=== PATIENT | male | born 1985 | race African-American/Black ===

== ENCOUNTER → 2022-08-03 09:35 | Outpatient (BNVA) | payer OTHER, SELFPAY | PROVIDERS: PCP Physician Assistant; Visit Provider Nurse Practitioner Family | DX: G43.909 Migraine, unspecified, not intractable, without status migrainosus (principal); R41.82 Altered mental status, unspecified; R25.8 Other abnormal involuntary movements | CPT/HCPCS: 99202 ==

== ENCOUNTER 2022-08-08 07:59 | Outpatient (REF) | payer OTHER, SELFPAY ==
--- NOTE | 2022-08-08 08:07 | EEG_ITS ---
FINDINGS: The waking background activity consists of well-defined posterior 10 Hz alpha frequency at ttr-od-piizeago voltage intermixed anteriorly with low voltage fast frequency. Photic stimulation and hyperventilation are without activation. No sleep stages are identified. No focal, lateralizing, or paroxysmal discharges seen. IMPRESSION: This waking EEG is within normal limits. MD LORRAINE Sykes/PEDRO / [id number]
== END 2022-08-08 08:00 | disposition home or self-care (01) ==
LOC: HO.NEURO 07:59
PROVIDERS: Visit Provider Nurse Practitioner Family
DX: R25.8 Other abnormal involuntary movements (principal); R41.82 Altered mental status, unspecified
CPT/HCPCS: 95816

== ENCOUNTER 2022-09-08 09:28 | Outpatient (REF) | payer OTHER, SELFPAY ==
--- NOTE | ~2022-09-08 | MR_ITS ---
MRI OF THE BRAIN WITHOUT IV CONTRAST INDICATION: Involuntary movements. COMPARISON: None available. TECHNIQUE: Multiplanar multisequence MR imaging of the brain was obtained without IV contrast. FINDINGS: There is no hydrocephalus, extra-axial surface collection, or herniation. The major flow voids at the skull base are preserved. There is no acute infarct on diffusion-weighted imaging. There is no intracranial hemorrhage on the gradient recalled echo acquisition. The midline structures are normal. The cerebellar tonsils are normally positioned. The cerebellum and brainstem are normal. The craniocervical junction is normal. Osseous marrow signal intensity is homogenous. The visualized soft tissues are unremarkable. 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 MR/MR head/brain wo con IMPRESSION: - Unremarkable noncontrast MRI of the brain. No seizure foci identified. 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
== END 2022-09-08 09:29 | disposition home or self-care (01) ==
LOC: HO.MRI 09:28
PROVIDERS: PCP Physician Assistant; Visit Provider Nurse Practitioner Family
DX: G43.909 Migraine, unspecified, not intractable, without status migrainosus (principal); R41.82 Altered mental status, unspecified; R25.8 Other abnormal involuntary movements
CPT/HCPCS: 70551

== ENCOUNTER → 2022-10-13 08:47 | Outpatient (BNVA) | payer OTHER, SELFPAY | PROVIDERS: PCP Physician Assistant; Visit Provider Nurse Practitioner Family | DX: G43.909 Migraine, unspecified, not intractable, without status migrainosus (principal); R41.82 Altered mental status, unspecified; R25.1 Tremor, unspecified; R25.8 Other abnormal involuntary movements | CPT/HCPCS: 99212 ==

== ENCOUNTER 2023-02-12 11:29 | Outpatient (AMB) | payer OTHER, SELFPAY ==
--- NOTE | 2023-02-12 11:32 | A.OFFVIS_ITS ---
Intake Vital Signs 02/12/23 11:33 Height 6 ft Weight 229 lb BMI 31.1 BP 122/82 Blood Pressure Location Rt brachial Position Sitting Pulse 91 Pulse Source Pulse Oximeter Pulse Oximetry (%) 97 Oxygen Delivery Method Room Air Intake Visit Reasons: 4m follow up headaches - Confirmed Intake Note: * Patient presents for 4 month follow up headaches. patient states I don't have them as frequent anymore. Allergies latex Allergy (Mild, Verified 02/12/23 11:34) Itching strawberries Allergy (Intermediate, Uncoded 02/12/23 11:34) Swelling Medication List - Last Reconciled 02/12/23 by JESSICA Hernandez carbamazepine ER 100 mg PO BID 30 days ibuprofen 200 mg PO Q6H PRN propranolol ER 60 mg PO BEDTIME sumatriptan succinate 50 - 100 mg orally at onset of headache, may repeat in 2 hrs PRN; max 2 tabs per day or 4 tabs/week (may take with Ibuprofen) 30 days HPI HPI Comments History of Present Illness Details 37-yr-old male presents for f/u visit. Pt denies any significant interval medical changes. However, he will be undergoing right shoulder surgery in a few weeks. Pt states he has had 1 spacing out/jerking episode since his last visit here 4 months ago. He has stopepd the carbamazapine- as he has not been having headaches. Using the Sumatriptan occasionally if he feels like a headache might come on- which is helpful. His CBC and CMP were- WNL. PFSH Surgical History Hx of hand surgery Family History Mother Hypertension Father Gout Brother Sickle cell anemia Sister Sickle cell anemia Social History Alcohol intake: current Alcohol intake frequency: 0-2 drinks per day Alcohol type: beer Patient Tobacco Use Status: Current everyday Tobacco user Tobacco use type: Cigarette Cigarettes Per Day: 3 Substance Use Type: Marijuana Review of Systems Const All systems reviewed & are unremarkable except as noted in HPI and below Physical Exam Vital Signs: Last Vital Signs Pulse 91 02/12/23 11:33 BP 122/82 08/28/23 11:33 Pulse Ox 97 02/12/23 11:33 Oxygen Delivery Method Room Air 02/12/23 11:33 BMI result Body Mass Index 31.1 Const General: cooperative and no acute distress Orientation/consciousness: patient oriented x3 HEENT Head: Yes normocephalic Resp Effort & Inspection: normal respiratory effort and able to speak in complete sentences Neuro General: patient oriented x3, gait normal and CN's II-XI intact bilaterally Cognition (Neuro): normal cognition Motor exam (neuro): 5/5 motor strength present throughout Psych Appearance: grossly normal Mental Status: mental status grossly normal Speech and movement: Normal speech and movement present Affect: normal affect Attitude: cooperative Thought process: Normal thought process present Thought content: Normal thought content present Insight: Good insight present (Psych) Judgement: Good judgement present (Psych) Assessment & Plan Assessment & Plan (1) Migraine: Code(s): G43.909 - Migraine, unspecified, not intractable, without status migrainosus (2) Altered mental state: Code(s): R41.82 - Altered mental status, unspecified (3) Involuntary jerky movements: Code(s): R25.8 - Other abnormal involuntary movements (4) Tremor: Code(s): R25.1 - Tremor, unspecified Plan Pt advised to undergo 72hr EEG. Previous work-up: Baseline EEG- normal Brain MRI- no findings to account for pt's s/s CBC/CMP- WNL For acute headache treatment: Continue Sumatriptan at 50-100mg at onset of migraine, MR kanwal's 1. Max 2 tabs/day. May take with Ibuprofen. Previous acute migraine medication trials: Sumatriptan 50mg. Acute migraine medication contraindications: None at this time. For headache prevention medication: May hold Tegretol 100mg ER bid until EEG completed, however discussed that he may need to resume this prior to his shoulder surgery. After the EEG, consider resuming for spacing out/involuntary movement episodes. Previous migraine prevention medication trials: None Migraine prevention medication contraindications: None at this time. f/u in 6 months or sooner prn. Orders: Orders EEG 72 Hours Today R25.8 - Other abnormal involuntary movements, R41.82 - Altered mental status, unspecified Coding Level of Care Code Est Pt Level 4 (51395) Diagnoses Migraine G43.909 Altered mental state R41.82 Involuntary jerky movements R25.8 Tremor R25.1
[2023-02-12 11:33] VITALS: BP 122/82; PULSE 91; O2SAT 97; BMI 31.1
== END 2023-02-12 12:00 | disposition home or self-care (01) ==
PROVIDERS: Visit Provider Nurse Practitioner Family
DX: G43.909 Migraine, unspecified, not intractable, without status migrainosus (principal); R41.82 Altered mental status, unspecified; R25.8 Other abnormal involuntary movements; R25.1 Tremor, unspecified
CPT/HCPCS: 99214

== ENCOUNTER → 2023-02-12 11:29 | Outpatient (BNVA) | payer OTHER, SELFPAY | PROVIDERS: Visit Provider Nurse Practitioner Family | DX: G43.909 Migraine, unspecified, not intractable, without status migrainosus (principal); R41.82 Altered mental status, unspecified; R25.8 Other abnormal involuntary movements; R25.1 Tremor, unspecified | CPT/HCPCS: 99212 ==

== ENCOUNTER 2023-08-16 09:40 | Outpatient (AMB) | payer OTHER, SELFPAY ==
--- NOTE | 2023-08-16 09:41 | A.OFFVIS_ITS ---
Intake Intake Visit Reasons: 6m follow up headaches-Confirmed Intake Note: Patient following on headaches. pt.having headaches here and there. Allergies latex Allergy (Mild, Verified 08/16/23 09:41) Itching strawberries Allergy (Intermediate, Uncoded 08/16/23 09:41) Swelling Medication List - Last Reconciled 08/16/23 by JESSICA Hernandez carbamazepine ER 100 mg PO BID 30 days ibuprofen 200 mg PO Q6H PRN sumatriptan succinate 50 - 100 mg orally at onset of headache, may repeat in 2 hrs PRN; max 2 tabs per day or 4 tabs/week (may take with Ibuprofen) 30 days HPI HPI Comments History of Present Illness Details 38-yr-old male presents for f/u televide o visit via [facility]. Pt denies any significant interval medical changes. Pt's reports that a month ago, when he was sleeping, she was awake and holding his hand, and his entire body was shaking. He did not have drooling, did not make any noises, no incontinence, or tongue biting. He was unaware of this episode. She woke him up, and he felt fine ok. This was the first episode he had in his sleep. He has not had a daytime episode of shaking/jerking/spacing out in a while. These can occur w/wo a headache. Last episode was a couple of weeks ago. He still has a daily low grade headache, PFSH Surgical History (Updated 08/16/23 @ 09:42 by MEÑO Carbone) H/O shoulder surgery Hx of hand surgery Family History Mother Hypertension Father Gout Brother Sickle cell anemia Sister Sickle cell anemia Social History Alcohol intake: current Alcohol intake frequency: 0-2 drinks per day Alcohol type: beer Patient Tobacco Use Status: Current everyday Tobacco user Tobacco use type: Cigarette Cigarettes Per Day: 3 Substance Use Type: Marijuana Physical Exam Const General: cooperative and no acute distress Orientation/consciousness: patient oriented x3 Resp Effort & Inspection: normal respiratory effort and able to speak in complete sentences Neuro General: patient oriented x3 Cognition (Neuro): normal cognition Psych Appearance: grossly normal Mental Status: mental status grossly normal Speech and movement: Normal speech and movement present Affect: normal affect Attitude: cooperative Assessment & Plan Assessment & Plan (1) Involuntary jerky movements: Code(s): R25.8 - Other abnormal involuntary movements (2) Tremor: Code(s): R25.1 - Tremor, unspecified (3) Migraine: Code(s): G43.909 - Migraine, unspecified, not intractable, without status migrainosus (4) Altered mental state: Code(s): R41.82 - Altered mental status, unspecified Plan Reviewed 72hr EEG- normal Previous work-up: Baseline EEG- normal Brain MRI- no findings to account for pt's s/s CBC/CMP- WNL ? For acute headache treatment: Continue Sumatriptan at 50-100mg at onset of migraine, MR kanwal's 1. Max 2 tabs/day. May take with Ibuprofen. Previous acute migraine medication trials: Sumatriptan 50mg. Acute migraine medication contraindications: None at this time. ? For headache prevention medication: Resume Tegretol 100mg ER bid in hopes this helps headaches and spacing out /involuntary movement episodes. Check CBC and CMP 1 week before f/u appt. Previous migraine prevention medication trials: None Migraine prevention medication contraindications: None at this time. ? f/u in 6 months or sooner prn. Orders: Orders Complete Blood Count Auto Diff 08/16/23 G43.909 - Migraine, unspecified, not intractable, without status migrainosus, R25.1 - Tremor, unspecified, R25.8 - Other abnormal involuntary movements Comprehensive Met. Panel 08/16/23 G43.909 - Migraine, unspecified, not intractable, without status migrainosus, R25.1 - Tremor, unspecified, R25.8 - Other abnormal involuntary movements Medications: Refilled carbamazepine ER 100 mg PO BID 60 caps 6RF 30 days Telehealth Telehealth Location of provider rendering services: practice address Location of patient: address on file Patient Identification confirmed using: Name, : Yes Telehealth method: video Patient verbally consented to treatment: Yes Patient verbally consented to billing insurance company: Yes Patient informed of any privacy concerns related to visit: Yes Minutes spent on Phone/Video with Pt.: 13 Coding Level of Care Code Tele Est Pt Level 4 (87053) Diagnoses Involuntary jerky movements R25.8 Tremor R25.1 Migraine G43.909 Altered mental state R41.82
== END 2023-08-16 14:26 | disposition home or self-care (01) ==
LOC: HO.HSMS 09:40
PROVIDERS: PCP Physician Assistant; Visit Provider Nurse Practitioner Family
DX: R25.8 Other abnormal involuntary movements (principal); R25.1 Tremor, unspecified; G43.909 Migraine, unspecified, not intractable, without status migrainosus; R41.82 Altered mental status, unspecified
CPT/HCPCS: 99214

== ENCOUNTER → 2023-08-16 09:40 | Outpatient (BNVA) | payer OTHER, SELFPAY | PROVIDERS: PCP Physician Assistant; Visit Provider Nurse Practitioner Family | DX: G43.909 Migraine, unspecified, not intractable, without status migrainosus (principal); R41.82 Altered mental status, unspecified; R25.1 Tremor, unspecified; R25.8 Other abnormal involuntary movements ==

== ENCOUNTER 2024-02-21 09:22 | Outpatient (AMB) | payer OTHER, SELFPAY ==
--- NOTE | 2024-02-21 09:25 | MHC.OFFVIS ---
Vital Signs 02/21/24 09:33 Height 6 ft Weight 225 lb BMI 30.5 Pulse 74 Pulse Source Pulse Oximeter Pulse Oximetry (%) 98 Oxygen Delivery Method Room Air Intake Visit Reasons: Follow up Intake Note: Patient presents for follow up Allergies latex Allergy (Mild, Verified 02/21/24 09:33) Itching strawberries Allergy (Intermediate, Uncoded 02/21/24 09:33) Swelling Medication List - Last Reconciled 02/21/24 by JESSICA Hernandez carbamazepine ER 100 mg PO BID 30 days ibuprofen 200 mg PO Q6H PRN sumatriptan succinate 50 - 100 mg orally at onset of headache, may repeat in 2 hrs PRN; max 2 tabs per day or 4 tabs/week (may take with Ibuprofen) 30 days HPI Comments Details: 38-yr-old male presents for f/u visit. Pt endorses the following interval medical history changes: He underwent right shoulder surgery a few months ago, which has healed well. Pt has gotten since the last visit. His last episode of involuntary movements was 1.5 months ago. He states these are less when he takes the Carbamazapine regularly. He is having a mild migraine 2 x's per month and more severe migraine 3-4 days per month. The more severe migraine is triggered by stress, poor sleep, and having a lot going on. His sleep is better now that his 2 yr old son who has autism is sleeping better. Sumatriptan helps. [facility] Surgical History H/O shoulder surgery Hx of hand surgery Family History Mother Hypertension Father Gout Brother Sickle cell anemia Sister Sickle cell anemia Social History Alcohol intake: current Alcohol intake frequency: 0-2 drinks per day Alcohol type: beer Patient Tobacco Use Status: Current everyday Tobacco user Tobacco use type: Cigarette Cigarettes Per Day: 3 Substance Use Type: Marijuana Physical Exam Vital Signs: Last Vital Signs Pulse 74 02/21/24 09:33 Pulse Ox 98 02/21/24 09:33 Oxygen Delivery Method Room Air 02/21/24 09:33 BMI result Body Mass Index 30.5 Const General: cooperative and no acute distress Orientation/consciousness: patient oriented x3 Resp Effort & Inspection: normal respiratory effort and able to speak in complete sentences Neuro Other: Mild photophobia improved w/ application of blue light filtering glasses. General: patient oriented x3 Cranial nerves: Yes CN's II-XII intact bilaterally Cognition (Neuro): normal cognition Psych Appearance: grossly normal Mental Status: mental status grossly normal Speech and movement: Normal speech and movement present Affect: normal affect Attitude: cooperative Assessment & Plan Assessment & Plan (1) Migraine: Code(s): G43.909 - Migraine, unspecified, not intractable, without status migrainosus Category: Medical (2) Involuntary jerky movements: Code(s): R25.8 - Other abnormal involuntary movements Category: Medical Plan For spacing out/involuntary movement episodes: Take Tegretol ER 100mg bid. Cnech CBC and CMP. Do not drive or operate heavy machinery w/in 6 months after last spacing out episode. Previous work-up: 72hr EEG- normal Baseline EEG- normal Brain MRI- no findings to account for pt's s/s ? For acute headache treatment: Continue Sumatriptan at 50-100mg at onset of migraine, MR kanwal's 1. Max 2 tabs/day. May take with Ibuprofen. Previous acute migraine medication trials: Sumatriptan 50mg. Acute migraine medication contraindications: None at this time. ? For headache prevention medication: Info shared on migraine specific blue light filtering glasses. Start Riboflavin 400mg qam. Start Magnesium 400mg qhs. Tegretol 100mg ER bid in hopes this helps headaches as well as spacing out/involuntary movement episodes. Previous migraine prevention medication trials: None Migraine prevention medication contraindications: None at this time. ? f/u in 6 months or sooner prn. Medications: New riboflavin (vitamin B2) 400 mg PO DAILY 30 days 30 tabs 6RF magnesium oxide may hold for loose stools 400 mg PO BEDTIME 30 days 30 tabs 6RF Refilled carbamazepine ER 100 mg PO BID 30 days 60 caps 6RF Coding Level of Care Code Est Pt Level 4 (93763) Diagnoses Migraine G43.909 Involuntary jerky movements R25.8
[2024-02-21 09:33] VITALS: PULSE 74; O2SAT 98; BMI 30.5
== END 2024-02-21 10:10 | disposition home or self-care (01) ==
PROVIDERS: PCP Physician Assistant; Visit Provider Nurse Practitioner Family
DX: G43.909 Migraine, unspecified, not intractable, without status migrainosus (principal); R25.8 Other abnormal involuntary movements
CPT/HCPCS: 99214

== ENCOUNTER → 2024-02-21 09:22 | Outpatient (BNVA) | payer OTHER, SELFPAY | PROVIDERS: PCP Physician Assistant; Visit Provider Nurse Practitioner Family | DX: G43.909 Migraine, unspecified, not intractable, without status migrainosus (principal); R25.8 Other abnormal involuntary movements | CPT/HCPCS: 99212 ==

== ENCOUNTER 2024-02-21 10:13 | Outpatient (REF) | payer OTHER, SELFPAY ==
[2024-02-21 17:46] LABS: MANUAL DIFF FLAG NO
[2024-02-21 18:02] LABS: Basophils Percent Auto 0.7 % (0-2); Eosinophils Absolute Auto 0.3 X10*3/uL (0.0-0.4); Eosinophils Percent Auto 6.8 % (0-4); Hematocrit 41.3 % (42.0-52.0); Hemoglobin 14.5 g/dl (14.0-18.0); Imm Gran Abs Auto 0.01 X10*3/uL (0.00-0.03); Imm Gran Pct Auto 0.2 % (0.0-0.4); Lymphocytes Absolute Auto 1.9 X10*3/uL (1.2-4.9); Mean Corpuscular HGB Conc 35.1 g/dl (31.0-36.0); Mean Corpuscular Hemoglobin 31.7 pg (27.0-33.0); Mean Corpuscular Volume 90.2 fL (80.0-98.0); Monocytes Absolute Auto 0.4 X10*3/uL (0.1-1.2); Monocytes Percent Auto 9.5 % (2-11); Neutrophils Absolute Auto 1.8 x10*3/uL (2.0-8.3); Neutrophils Percent Auto 39.8 % (45-73); Platelet Count 271 X10*3/uL (160-400); Red Blood Count 4.58 X10*6/uL (4.60-5.80); Red Cell Distribution Width 12.8 % (11.0-16.0); White Blood Count 4.4 X10*3/uL (4.8-10.8)
[2024-02-21 18:23] LABS: Alanine Aminotransferase 53 U/L (0-40); Albumin Level 4.3 g/dL (3.5-5.0); Alkaline Phosphatase 57 U/L (39-117); Anion Gap 10 (12-20); Aspartate Amino Transferase 30 U/L (5-37); Bilirubin Total 0.3 mg/dL (0.0-1.0); Blood Urea Nitrogen 15 mg/dL (9-16); Calcium 9.1 mg/dL (8.4-10.2); Carbon Dioxide 26 mmol/L (22-29); Chloride 108 mmol/L (96-108); Estimated Glomerular Filt Rate > 60; Glucose Random 112 mg/dL (60-115); Potassium 4.3 mmol/L (3.3-5.1); Sodium 140 mmol/L (135-145); Total Protein 7.1 g/dL (6.5-8.0)
== END 2024-02-21 10:14 | disposition home or self-care (01) ==
LOC: HO.HKASLDS 10:13
PROVIDERS: Visit Provider Nurse Practitioner Family
DX: R25.1 Tremor, unspecified (principal); G43.909 Migraine, unspecified, not intractable, without status migrainosus; R25.8 Other abnormal involuntary movements
CPT/HCPCS: 36415; 80053; 85025